=== PATIENT | female | born 1985 | race American Indian/Alaskan Native ===

== ENCOUNTER 2018-10-03 04:53 | Emergency (ER) | payer SELFPAY ==
[2018-10-03] MEDS ORDERED: FIORICET PO ONE (08:31)
--- NOTE | 2018-10-03 08:42 | Emergency Department Report ---
ED ENT HPI - General Chief complaint: Neck Pain/Injury Stated complaint: NECK PAIN SINUS Time Seen by Provider: 10/03/18 08:02 Source: patient Mode of arrival: Ambulatory Limitations: No Limitations - History of Present Illness Initial comments: his is a 32-year-old female who presents to ED with nasal congestion throat pain and ear pain for the past 2 weeks. Patient to symptoms not resolving. Patient states she took Mucinex no relief. She denies fevers/chills/nausea vomiting/abdominal pain. MD complaint: sore throat, ear pain - Related Data Previous Rx's Medication Instructions Recorded Last Taken Type Amoxicillin/Potassium Clav 1 each PO BID #20 tablet 10/03/18 Unknown Rx [Augmentin 875-125 Tablet] Loratadine [Claritin] 10 mg PO DAILY #30 tablet 10/03/18 Unknown Rx Pseudoephedrine ER [Sudafed 12 Hr] 120 mg PO BID #20 tablet.er 10/03/18 Unknown Rx ED Dental HPI - General Chief complaint: Neck Pain/Injury Stated complaint: NECK PAIN SINUS Time Seen by Provider: 10/03/18 08:02 Source: patient Mode of arrival: Ambulatory Limitations: No Limitations - History of Present Illness Initial comments: T - Related Data Previous Rx's Medication Instructions Recorded Last Taken Type Amoxicillin/Potassium Clav 1 each PO BID #20 tablet 10/03/18 Unknown Rx [Augmentin 875-125 Tablet] Loratadine [Claritin] 10 mg PO DAILY #30 tablet 10/03/18 Unknown Rx Pseudoephedrine ER [Sudafed 12 Hr] 120 mg PO BID #20 tablet.er 10/03/18 Unknown Rx ED Review of Systems ROS: Stated complaint: NECK PAIN SINUS Other details as noted in HPI Constitutional: denies: chills, fever Eyes: denies: eye pain, eye discharge, vision change ENT: ear pain, congestion. denies: throat pain Respiratory: denies: cough, shortness of breath, wheezing Cardiovascular: denies: chest pain, palpitations Endocrine: no symptoms reported Gastrointestinal: denies: abdominal pain, nausea, diarrhea Genitourinary: denies: urgency, dysuria, discharge Musculoskeletal: denies: back pain, joint swelling, arthralgia Skin: denies: rash, lesions Neurological: denies: headache, weakness, paresthesias Psychiatric: denies: anxiety, depression Hematological/Lymphatic: denies: easy bleeding, easy bruising ED Past Medical Hx - Past Medical History Previous Medical History?: No - Surgical History Past Surgical History?: No - Social History Smoking Status: Current Every Day Smoker Substance Use Type: Alcohol, Marijuana - Medications Home Medications: Home Medications Medication Instructions Recorded Confirmed Last Taken Type Amoxicillin/Potassium Clav 1 each PO BID #20 tablet 10/03/18 Unknown Rx [Augmentin 875-125 Tablet] Loratadine [Claritin] 10 mg PO DAILY #30 tablet 10/03/18 Unknown Rx Pseudoephedrine ER [Sudafed 12 Hr] 120 mg PO BID #20 tablet.er 10/03/18 Unknown Rx ED Physical Exam - General Limitations: No Limitations General appearance: alert, in no apparent distress - Head Head exam: Present: atraumatic, normocephalic - Eye Eye exam: Present: normal appearance - ENT ENT exam: Present: mucous membranes moist - Neck Neck exam: Present: normal inspection, full ROM. Absent: tenderness, lymphadenopathy - Respiratory Respiratory exam: Present: normal lung sounds bilaterally. Absent: respiratory distress, wheezes, rales - Cardiovascular Cardiovascular Exam: Present: regular rate, normal rhythm. Absent: systolic murmur, diastolic murmur, rubs, gallop - GI/Abdominal GI/Abdominal exam: Present: soft, normal bowel sounds - Extremities Exam Extremities exam: Present: normal inspection - Back Exam Back exam: Present: normal inspection - Neurological Exam Neurological exam: Present: alert, oriented X3 - Psychiatric Psychiatric exam: Present: normal affect, normal mood - Skin Skin exam: Present: warm, dry, intact, normal color. Absent: rash ED Course Vital Signs 10/03/18 10/03/18 10/03/18 05:02 09:00 09:13 Temperature 98.1 F Pulse Rate 77 Respiratory 16 18 18 Rate Blood Pressure 147/86 Blood Pressure [Left] O2 Sat by Pulse 99 Oximetry 10/03/18 09:29 Temperature 97.8 F Pulse Rate 70 Respiratory 18 Rate Blood Pressure Blood Pressure 125/88 [Left] O2 Sat by Pulse 100 Oximetry ED Medical Decision Making - Medical Decision Making 32-year-old female presents with sinusitis. She is in no acute distress. Discussed with pt to f/u withpcp vital signs are normal Critical care attestation.: If time is entered above; I have spent that time in minutes in the direct care of this critically ill patient, excluding procedure time. ED Disposition Clinical Impression: Sinusitis Disposition: DC-01 TO HOME OR SELFCARE Is pt being admited?: No Does the pt Need Aspirin: No Condition: Stable Instructions: Sinusitis (ED), Acute Bacterial Rhinosinusitis (ED) Additional Instructions: Make sure to follow up with the primary care physician as discussed. Take all your medications as you've been prescribed. If you have any worsening symptoms or develop new symptoms please return to ED immediately. Prescriptions: Amoxicillin/Potassium Clav [Augmentin 875-125 Tablet] 1 each PO BID #20 tablet Loratadine [Claritin] 10 mg PO DAILY #30 tablet Pseudoephedrine ER [Sudafed 12 Hr] 120 mg PO BID #20 tablet.er Referrals: THOMAS WATKINS MD [Primary Care Provider] - 3-5 Days Forms: Work/School Release Form(ED) Time of Disposition: 09:13
[2018-10-03 09:31] VITALS: BP 125/88
== END 2018-10-03 09:31 | disposition home or self-care (01) ==
LOC: ED 04:53
DX: J32.9 Chronic sinusitis, unspecified (principal); F17.200 Nicotine dependence, unspecified, uncomplicated; F12.10 Cannabis abuse, uncomplicated
CPT/HCPCS: 99282